=== PATIENT | male | born 1980 | race African-American/Black ===

== ENCOUNTER 2017-06-27 10:39 | Emergency (ER) | payer SELFPAY ==
[~2017-06-27] VITALS: Ht 185.4 cm; Wt 77.1 kg
[2017-06-27 10:44] VITALS: BP 148/79
== END 2017-06-27 11:22 | disposition left against medical advice (07) ==
LOC: ER 10:39
DX: M25.571 Pain in right ankle and joints of right foot (principal); Z53.21 Procedure and treatment not carried out due to patient leaving prior to being seen by health care provider; W19.XXXA Unspecified fall, initial encounter; Y93.89 Activity, other specified; Y99.8 Other external cause status; Y92.89 Other specified places as the place of occurrence of the external cause